=== PATIENT | male | born 1950 ===

== ENCOUNTER → 2021-07-04 | Outpatient (REF) ==
--- NOTE | 2021-07-04 10:29 | REP ---
INDICATION: PAIN COMPARISON: None. TECHNIQUE: AP and lateral right and left knee FINDINGS: Right knee demonstrates mild increased sclerosis to the tibial plateau with subtle joint space narrowing. Lateral view cannot exclude prepatellar soft tissue swelling. No evidence for fracture or dislocation. No effusion. Left knee demonstrates minimal sclerosis to the tibial plateau with no significant appreciable joint space narrowing. Lateral view appears relatively normal. No evidence for fracture or dislocation. No effusion. IMPRESSION: Mild age-related changes to the right knee. <Electronically signed by Rancho Christine > 07/04/21 6310
== END ==
LOC: M PLAIMG 09:30
PROVIDERS: ATTEND Internal Medicine
DX: M25.561 Pain in right knee (principal); M25.562 Pain in left knee